=== PATIENT | female | born 1955 | race Caucasian/White ===

== ENCOUNTER 2020-07-18 14:17 | Emergency (ER) | payer MEDICAID ==
[~2020-07-18] VITALS: Ht 160 cm; Wt 83.1 kg
[2020-07-18 14:22] VITALS: BP 148/79
--- NOTE | 2020-07-18 16:14 | NUR ---
pt states she does vape every day. notified. pt oxygen sustained at 90-93% RA
== END 2020-07-18 16:52 | disposition home or self-care (01) ==
LOC: ED 16:45
DX: J44.9 Chronic obstructive pulmonary disease, unspecified (principal); Z87.891 Personal history of nicotine dependence; R06.00 Dyspnea, unspecified
CPT/HCPCS: 99283